=== PATIENT | male | born 1945 | race Caucasian/White ===

== ENCOUNTER 2016-09-14 12:32 | Emergency (ER) | payer OTHER ==
[~2016-09-14] VITALS: Ht 175.3 cm; Wt 119.5 kg
[~2016-09-14 12:32] MED LIST: CARDIZEM CD240 MG PO; CELEBREX200 MG PO; DIABETA,MICRON2.5 MG PO; METHOCARBAMOL750 MG PO; MICRONASE5 MG PO; MOBIC15 MG PO; SIMVASTATIN40 M1 PO; TAZTIA XT240 M1 PO; TIAZAC180 MG PO; ZESTORETIC 10-1 EAC1 PO; ZESTORETIC,P1 TABLET PO; ZOCOR40 MG PO
[2016-09-14] MEDS ORDERED: HYDROCODON-ACE1 EAC7 PO (14:08)
[2016-09-14] MEDS ORDERED: METHOCARBAMOL500 MG PO (14:08)
[2016-09-14 15:23] LABS: MCH 30.3 PG (29.0-34.0); MCHC 33.1 G/DL (30.0-36.0); MCV 91.7 FL (86-99); MEAN PLAT.VOLUME 8.8 uM^3 (9.0-12.4); PLATELET COUNT 272 K/uL (156-360); RBC DIS.WIDTH-CV 13.9 % (11.8-14.6); RBC DIS.WIDTH-SD 47.3 % (39-53); RED BLOOD COUNT 4.58 M/uL (4.00-5.50)
[2016-09-14 15:31] LABS: PROTHROMBIN TIME 10.1 (9.2-11.2)
[2016-09-14 15:43] LABS: CHLORIDE 107 mEq/L (99-109); POTASSIUM 3.9 mEq/L (3.7-5.4); SODIUM 142 mEq/L (136-147)
[2016-09-14 15:45] LABS: GLUCOSE 133 mg/dL (70-99)
[2016-09-14 15:46] LABS: ANION GAP 7 MEQ/L (2-14)
[2016-09-14 15:49] LABS: GFR ESTIMATE (CALCULATED) > 59 mL/min/; UREA NITROGEN (BUN) 24 mg/dL (9-23)
[2016-09-14] MEDS ORDERED: NAPROSYN500 MG PO (16:34)
[2016-09-14 16:56] VITALS: BP 139/87
== END 2016-09-14 16:58 | disposition home or self-care (01) ==
LOC: EME 12:32
PROVIDERS: Nurse Practitioner Family
DX: I80.02 Phlebitis and thrombophlebitis of superficial vessels of left lower extremity (principal); I83.93 Asymptomatic varicose veins of bilateral lower extremities; I10 Essential (primary) hypertension; Z87.891 Personal history of nicotine dependence; E78.5 Hyperlipidemia, unspecified; E66.9 Obesity, unspecified; Z68.38 Body mass index [BMI] 38.0-38.9, adult
CPT/HCPCS: 80048; 85027; 85610; 99281; 99284

== ENCOUNTER → 2017-01-16 | Outpatient (CLI) | payer OTHER ==
[~2017-01-16] MED LIST changes: +HYDROCODON-ACE1 EAC7 PO; +METHOCARBAMOL500 MG PO; +NAPROSYN500 MG PO
== END | disposition home or self-care (01) ==
DX: M16.12 Unilateral primary osteoarthritis, left hip (principal); R26.2 Difficulty in walking, not elsewhere classified; M25.552 Pain in left hip; M25.652 Stiffness of left hip, not elsewhere classified; M62.81 Muscle weakness (generalized); Z74.1 Need for assistance with personal care
CPT/HCPCS: 97110 GP; 97150 GO; 97161 GP; 97165 GO

== ENCOUNTER 2017-01-29 22:05 | Inpatient (IN) | payer OTHER ==
[~2017-01-29] VITALS: Ht 175.3 cm; Wt 111.5 kg
[~2017-01-29 22:05] MED LIST changes: +FLOMAX0.4 MG PO; +IRON325 M1 PO; +OXAYDO5 MG PO
[2017-01-30 07:22] LABS: POINT-OF-CARE METER ID UU14174212
[2017-01-30 07:58] VITALS: BP 125/76
[2017-01-30 11:44] LABS: HEMATOCRIT 34.9 % (38.0-50.0); MCH 30.5 PG (29.0-34.0); MCV 92.6 FL (86-99); MEAN PLAT.VOLUME 8.9 uM^3 (9.0-12.4); PLATELET COUNT 246 K/uL (156-360); RBC DIS.WIDTH-CV 13.7 % (11.8-14.6); RBC DIS.WIDTH-SD 46.7 % (39-53); RED BLOOD COUNT 3.77 M/uL (4.00-5.50); WHITE BLOOD COUNT 10.3 K/uL (4.1-10.2)
[2017-01-30 11:47] LABS: POINT-OF-CARE METER ID UU13113675
[2017-01-30 13:09] VITALS: BP 111/52
[2017-01-30 13:11] VITALS: BP 126/67
[2017-01-30 15:37] VITALS: BP 125/72
[2017-01-30 19:23] LABS: POINT-OF-CARE METER ID UU13113712
[2017-01-30 20:07] VITALS: BP 121/73
[2017-01-31 00:30] VITALS: BP 128/80
[2017-01-31 00:35] LABS: POINT-OF-CARE METER ID UU13113712
[2017-01-31 04:00] VITALS: BP 134/74
[2017-01-31 05:48] LABS: ANION GAP 8 MEQ/L (2-14); CHLORIDE 104 MEQ/L (99-109); GFR ESTIMATE (CALCULATED) > 59 mL/min/; GLUCOSE 150 mg/dL (70-99); SAMPLE HEMOLYSIS CHECK 0; SAMPLE ICTERIC CHECK 0; SAMPLE LIPEMIA CHECK 0; SODIUM 138 MEQ/L (136-147); UREA NITROGEN (BUN) 14 mg/dL (9-23)
[2017-01-31 05:58] LABS: POINT-OF-CARE METER ID UU13113712
[2017-01-31 08:00] VITALS: BP 134/87
[2017-01-31 12:00] VITALS: BP 157/95
[2017-01-31 12:32] LABS: POINT-OF-CARE METER ID UU13113712
[2017-01-31 12:57] LABS: HEMATOCRIT 37.8 % (38.0-50.0); MCV 93.1 FL (86-99)
[2017-01-31 15:53] VITALS: BP 119/70
[2017-01-31 18:52] LABS: POINT-OF-CARE METER ID UU13113712
[2017-01-31 20:04] VITALS: BP 102/68
[2017-01-31 23:46] LABS: POINT-OF-CARE METER ID UU13113712
[2017-02-01 00:09] VITALS: BP 121/62
[2017-02-01 03:37] VITALS: BP 123/64
[2017-02-01 06:09] LABS: POINT-OF-CARE METER ID UU13113712
[2017-02-01 08:05] VITALS: BP 117/56
[2017-02-01] MEDS ORDERED: ENDOCET 5-3251 EACH PO (08:52)
[2017-02-01] MEDS ORDERED: LOVENOX40 MG/0.4 SC (08:52)
[2017-02-01 11:51] LABS: POINT-OF-CARE METER ID UU13113712
[2017-02-01 12:10] VITALS: BP 121/67
[2017-02-01 15:39] VITALS: BP 109/56
[2017-02-01 18:15] LABS: POINT-OF-CARE METER ID UU13113712
[2017-02-01] MEDS ORDERED: SENNA-DOCUSATE1 EAC1 PO (23:26)
[2017-02-01] MEDS ORDERED: ZEASORB-AF70 G1 TP (23:27)
[2017-02-01] MEDS ORDERED: COMPAZINE25 M1 PR (23:28)
[2017-02-01] MEDS ORDERED: ZOFRAN4 MG/2 ML IV (23:29)
[2017-02-01] MEDS ORDERED: ZOFRAN4 MG PO (23:31)
[2017-02-01] MEDS ORDERED: REGLAN10 MG PO (23:31)
[2017-02-01] MEDS ORDERED: MILK OF MAGN PO (23:33)
[2017-02-01] MEDS ORDERED: CITRATE OF MAG296 ML PO (23:35)
[2017-02-01] MEDS ORDERED: VIVA PATCH1 EACH TP (23:35)
[2017-02-01] MEDS ORDERED: DILAUDID 00.5 MG/0.5 IV (23:36)
[2017-02-01] MEDS ORDERED: GLUCAGON HCL1 MG IM (23:37)
[2017-02-01] MEDS ORDERED: COLACE100 MG PO (23:37)
[2017-02-01] MEDS ORDERED: BENADRYL25 MG PO (23:38)
[2017-02-01] MEDS ORDERED: BENADRYL50 MG/1 ML IM (23:39)
[2017-02-01] MEDS ORDERED: DULCOLAX10 MG PR (23:40)
[2017-02-01] MEDS ORDERED: MAALOX ADVANCE355 ML PO (23:41)
[2017-02-01] MEDS ORDERED: DULCOLAX5 MG PO (23:41)
[2017-02-01] MEDS ORDERED: TYLENOL REGULA325 MG PO (23:42)
[2017-02-01] MEDS ORDERED: NOVOLOG PE100 UNITS/ SC (23:43)
== END 2017-02-01 18:05 | DRG 470 ==
LOC: ENRESERV 22:05 → 3WEST 01-30 06:38 → 2SOUTH 01-30 06:38 → 3WEST 01-30 12:42 → 2SOUTH 01-30 14:12 → 3WEST 02-01 12:04 → ENRESERV 02-01 12:05 → CANRESERV 02-01 13:11 → ENRESERV 02-01 13:11 → 3WEST 02-01 18:05
PROVIDERS: Orthopaedic Surgery
PROC: 0SRB02A Replacement of Left Hip Joint with Metal on Polyethylene Synthetic Substitute, Uncemented, Open Approach (ICD-10-PCS; principal; 2017-01-30)
DX: M16.12 Unilateral primary osteoarthritis, left hip (principal); E11.9 Type 2 diabetes mellitus without complications; E78.00 Pure hypercholesterolemia, unspecified; I10 Essential (primary) hypertension; N40.0 Benign prostatic hyperplasia without lower urinary tract symptoms; E66.9 Obesity, unspecified; M48.06 Spinal stenosis, lumbar region; I83.92 Asymptomatic varicose veins of left lower extremity; Z68.39 Body mass index [BMI] 39.0-39.9, adult; Z79.84 Long term (current) use of oral hypoglycemic drugs; Z23 Encounter for immunization; Z87.891 Personal history of nicotine dependence; Z80.6 Family history of leukemia; Z82.5 Family history of asthma and other chronic lower respiratory diseases
CPT/HCPCS: 73501; 80048; 82948; 85014; 85018; 85027; 90686; J0690; J1170; J1650; J1815; J2250; J2405; J7050

== ENCOUNTER 2017-02-01 16:04 | Inpatient (IN) | payer OTHER ==
[~2017-02-01] VITALS: Ht 175.3 cm; Wt 102.9 kg
[~2017-02-01 16:04] MED LIST changes: +ENDOCET 5-3251 EACH PO; +LOVENOX40 MG/0.4 SC
[2017-02-01 18:14] VITALS: BP 138/62
[2017-02-01 21:08] LABS: POINT-OF-CARE METER ID UU14174215
[2017-02-01] MEDS ORDERED: SENNA-DOCUSATE1 EAC1 PO (23:26)
[2017-02-01] MEDS ORDERED: ZEASORB-AF70 G1 TP (23:27)
[2017-02-01] MEDS ORDERED: COMPAZINE25 M1 PR (23:28)
[2017-02-01] MEDS ORDERED: ZOFRAN4 MG/2 ML IV (23:29)
[2017-02-01] MEDS ORDERED: ZOFRAN4 MG PO (23:31)
[2017-02-01] MEDS ORDERED: REGLAN10 MG PO (23:31)
[2017-02-01] MEDS ORDERED: MILK OF MAGN PO (23:33)
[2017-02-01] MEDS ORDERED: CITRATE OF MAG296 ML PO (23:35)
[2017-02-01] MEDS ORDERED: VIVA PATCH1 EACH TP (23:35)
[2017-02-01] MEDS ORDERED: DILAUDID 00.5 MG/0.5 IV (23:36)
[2017-02-01] MEDS ORDERED: GLUCAGON HCL1 MG IM (23:37)
[2017-02-01] MEDS ORDERED: COLACE100 MG PO (23:37)
[2017-02-01] MEDS ORDERED: BENADRYL25 MG PO (23:38)
[2017-02-01] MEDS ORDERED: BENADRYL50 MG/1 ML IM (23:39)
[2017-02-01] MEDS ORDERED: DULCOLAX10 MG PR (23:40)
[2017-02-01] MEDS ORDERED: MAALOX ADVANCE355 ML PO (23:41)
[2017-02-01] MEDS ORDERED: DULCOLAX5 MG PO (23:41)
[2017-02-01] MEDS ORDERED: TYLENOL REGULA325 MG PO (23:42)
[2017-02-01] MEDS ORDERED: NOVOLOG PE100 UNITS/ SC (23:43)
[2017-02-02 01:34] VITALS: BP 114/69
[2017-02-02 04:42] VITALS: BP 137/74
[2017-02-02 05:27] LABS: MCH 31.1 PG (29.0-34.0); MCHC 33.3 G/DL (30.0-36.0); MCV 93.2 FL (86-99); MEAN PLAT.VOLUME 9.1 uM^3 (9.0-12.4); PLATELET COUNT 249 K/uL (156-360); RBC DIS.WIDTH-CV 14.2 % (11.8-14.6); RBC DIS.WIDTH-SD 48.5 % (39-53); RED BLOOD COUNT 3.54 M/uL (4.00-5.50); WHITE BLOOD COUNT 12.6 K/uL (4.1-10.2)
[2017-02-02 05:55] LABS: ALKALINE PHOSPHATASE 64 IU/L (3-129); ANION GAP 7 MEQ/L (2-14); CHLORIDE 101 MEQ/L (99-109); GFR ESTIMATE (CALCULATED) > 59 mL/min/; POTASSIUM 3.9 MEQ/L (3.7-5.4); SAMPLE HEMOLYSIS CHECK 0; SAMPLE ICTERIC CHECK 0; SAMPLE LIPEMIA CHECK 0; SODIUM 137 MEQ/L (136-147); TOTAL BILIRUBIN 0.6 MG/DL (0.0-1.0)
[2017-02-02 05:57] LABS: GLUCOSE 106 mg/dL (70-99); UREA NITROGEN (BUN) 26 mg/dL (9-23)
[2017-02-02 07:20] LABS: POINT-OF-CARE METER ID UU14174215; POINT-OF-CARE USER ID ENVGAF
[2017-02-02 11:47] LABS: POINT-OF-CARE METER ID UU14174215
[2017-02-02 16:00] VITALS: BP 120/66
[2017-02-02 17:01] LABS: POINT-OF-CARE METER ID UU14174215
[2017-02-02 21:00] LABS: POINT-OF-CARE METER ID UU13113720
[2017-02-03 05:29] VITALS: BP 145/71
[2017-02-03 07:58] LABS: POINT-OF-CARE METER ID UU14174215
[2017-02-03 11:34] LABS: POINT-OF-CARE METER ID UU14174215
[2017-02-03 15:14] VITALS: BP 124/83
[2017-02-03 16:23] LABS: POINT-OF-CARE METER ID UU14174215
[2017-02-03 21:18] LABS: POINT-OF-CARE METER ID UU13113720
[2017-02-04 05:51] VITALS: BP 127/55
[2017-02-04 07:10] LABS: POINT-OF-CARE METER ID UU13113720
[2017-02-04 12:02] LABS: POINT-OF-CARE METER ID UU14174215
[2017-02-04 15:46] VITALS: BP 132/64
[2017-02-04 16:38] LABS: POINT-OF-CARE METER ID UU14174215
[2017-02-04 21:54] LABS: POINT-OF-CARE METER ID UU13113720
[2017-02-05 05:34] VITALS: BP 139/79
[2017-02-05 07:40] LABS: POINT-OF-CARE METER ID UU13113720
[2017-02-05 12:08] LABS: POINT-OF-CARE METER ID UU13113720
[2017-02-05 15:33] VITALS: BP 114/67
[2017-02-05 16:41] LABS: POINT-OF-CARE METER ID UU13113720
[2017-02-05 19:03] LABS: HEMATOCRIT 33.4 % (38.0-50.0); MCH 31.7 PG (29.0-34.0); MCHC 33.8 G/DL (30.0-36.0); MCV 93.8 FL (86-99); MEAN PLAT.VOLUME 8.5 uM^3 (9.0-12.4); PLATELET COUNT 333 K/uL (156-360); RBC DIS.WIDTH-CV 14.2 % (11.8-14.6); RBC DIS.WIDTH-SD 48.7 % (39-53); RED BLOOD COUNT 3.56 M/uL (4.00-5.50); WHITE BLOOD COUNT 9.6 K/uL (4.1-10.2)
[2017-02-05 19:11] LABS: ANION GAP 9 MEQ/L (2-14); CHLORIDE 103 MEQ/L (99-109); GFR ESTIMATE (CALCULATED) > 59 mL/min/; GLUCOSE 137 mg/dL (70-99); POTASSIUM 3.3 MEQ/L (3.7-5.4); SAMPLE HEMOLYSIS CHECK 0; SAMPLE ICTERIC CHECK 0; SAMPLE LIPEMIA CHECK 0; SODIUM 139 MEQ/L (136-147); UREA NITROGEN (BUN) 28 mg/dL (9-23)
[2017-02-05 21:44] LABS: POINT-OF-CARE METER ID UU13113720
[2017-02-06 05:26] VITALS: BP 136/68
[2017-02-06 07:14] LABS: ANION GAP 8 MEQ/L (2-14); CHLORIDE 104 MEQ/L (99-109); GFR ESTIMATE (CALCULATED) > 59 mL/min/; GLUCOSE 121 mg/dL (70-99); POTASSIUM 4.2 MEQ/L (3.7-5.4); SAMPLE HEMOLYSIS CHECK 0; SAMPLE ICTERIC CHECK 0; SAMPLE LIPEMIA CHECK 0; SODIUM 140 MEQ/L (136-147); UREA NITROGEN (BUN) 22 mg/dL (9-23)
== END 2017-02-06 14:52 | disposition home health service (06) | DRG 560 ==
LOC: 3WEST 16:04
PROVIDERS: Physical Medicine & Rehabilitation Pain Medicine
DX: Z47.1 Aftercare following joint replacement surgery (principal); R26.2 Difficulty in walking, not elsewhere classified; Z96.642 Presence of left artificial hip joint; D62 Acute posthemorrhagic anemia; D72.829 Elevated white blood cell count, unspecified; M79.605 Pain in left leg; M25.512 Pain in left shoulder; M25.511 Pain in right shoulder; R11.0 Nausea; E11.9 Type 2 diabetes mellitus without complications; E78.00 Pure hypercholesterolemia, unspecified; I10 Essential (primary) hypertension; N40.0 Benign prostatic hyperplasia without lower urinary tract symptoms; Z80.6 Family history of leukemia; Z87.891 Personal history of nicotine dependence
CPT/HCPCS: 80048; 80053; 82948; 85027; 97110 GO; 97530 GP; J1650

== ENCOUNTER 2017-03-24 21:04 | Inpatient (IN) | payer OTHER ==
[~2017-03-24] VITALS: Ht 175.3 cm; Wt 116.0 kg
[~2017-03-24 21:04] MED LIST changes: +BENADRYL25 MG PO; +BENADRYL50 MG/1 ML IM; +CITRATE OF MAG296 ML PO; +COLACE100 MG PO; +COMPAZINE25 M1 PR; +DILAUDID 00.5 MG/0.5 IV; +DULCOLAX10 MG PR; +DULCOLAX5 MG PO; +GLUCAGON HCL1 MG IM; +MAALOX ADVANCE355 ML PO; +MILK OF MAGN PO; +NOVOLOG PE100 UNITS/ SC; +REGLAN10 MG PO; +SENNA-DOCUSATE1 EAC1 PO; +TYLENOL REGULA325 MG PO; +VIVA PATCH1 EACH TP; +ZEASORB-AF70 G1 TP; +ZOFRAN4 MG PO; +ZOFRAN4 MG/2 ML IV
[2017-03-24 21:27] LABS: HEMATOCRIT 37.2 % (38.0-50.0); MCH 31.1 PG (29.0-34.0); MCHC 32.8 G/DL (30.0-36.0); MCV 94.9 FL (86-99); MEAN PLAT.VOLUME 8.7 uM^3 (9.0-12.4); PLATELET COUNT 258 K/uL (156-360); RBC DIS.WIDTH-CV 14.2 % (11.8-14.6); RBC DIS.WIDTH-SD 49.1 % (39-53); RED BLOOD COUNT 3.92 M/uL (4.00-5.50); WHITE BLOOD COUNT 9.1 K/uL (4.1-10.2)
[2017-03-24 21:37] LABS: CHLORIDE 109 mEq/L (99-109); POTASSIUM 3.6 mEq/L (3.7-5.4); SODIUM 142 mEq/L (136-147)
[2017-03-24 21:39] LABS: GLUCOSE 161 mg/dL (70-99)
[2017-03-24 21:40] LABS: ANION GAP 7 MEQ/L (2-14)
[2017-03-24 21:43] LABS: GFR ESTIMATE (CALCULATED) > 59 mL/min/
[2017-03-24 21:44] LABS: UREA NITROGEN (BUN) 25 mg/dL (9-23)
[2017-03-24 21:49] LABS: TROP-I INTERPRETATION NEGATIVE; TROPONIN-I < 0.01 ng/mL (0.0-0.30)
[2017-03-25] MEDS ORDERED: OXYCODONE HCL5 MG PO (01:38)
[2017-03-25 02:17] VITALS: BP 179/84
[2017-03-25 03:12] LABS: PROTHROMBIN TIME 11.2 SEC (10.2-12.9)
[2017-03-25 03:15] LABS: PTT 30.6 SEC (25-37)
[2017-03-25 06:10] LABS: HEMATOCRIT 35.5 % (38.0-50.0); MCH 30.9 PG (29.0-34.0); MCHC 32.7 G/DL (30.0-36.0); MCV 94.4 FL (86-99); MEAN PLAT.VOLUME 9.1 uM^3 (9.0-12.4); PLATELET COUNT 260 K/uL (156-360); RBC DIS.WIDTH-SD 48.3 % (39-53); RED BLOOD COUNT 3.76 M/uL (4.00-5.50); WHITE BLOOD COUNT 10.1 K/uL (4.1-10.2)
[2017-03-25 06:34] LABS: TROP-I INTERPRETATION NEGATIVE; TROPONIN-I 0.02 ng/mL (0.0-0.30)
[2017-03-25 07:20] LABS: ALKALINE PHOSPHATASE 79 IU/L (3-129); ANION GAP 10 MEQ/L (2-14); CHLORIDE 107 MEQ/L (99-109); GFR ESTIMATE (CALCULATED) > 59 mL/min/; GLUCOSE 152 mg/dL (70-99); POTASSIUM 3.9 MEQ/L (3.7-5.4); SAMPLE HEMOLYSIS CHECK 0; SAMPLE ICTERIC CHECK 0; SAMPLE LIPEMIA CHECK 0; SODIUM 143 MEQ/L (136-147); TOTAL BILIRUBIN 0.4 MG/DL (0.0-1.0); UREA NITROGEN (BUN) 20 mg/dL (9-23)
[2017-03-25 08:30] VITALS: BP 146/92
[2017-03-25 08:59] LABS: ADD MIUA? NO; BILIRUBIN NEGATIVE; BLOOD NEGATIVE; COLOR YELLOW ((YELLOW)); GLUCOSE (STRIP) NEGATIVE; KETONES NEGATIVE; LEUKOCYTES NEGATIVE; NITRITE NEGATIVE; PROTEIN (STRIP) NEGATIVE; SPECIFIC GRAVITY 1.026 (1.000-1.030); UROBILINOGEN 0.2 MG/DL (0.2-1.0)
[2017-03-25 12:30] VITALS: BP 135/81
[2017-03-25 15:04] LABS: TROP-I INTERPRETATION NEGATIVE; TROPONIN-I 0.02 ng/mL (0.0-0.30)
[2017-03-25 19:42] VITALS: BP 132/80
[2017-03-25 21:06] LABS: POINT-OF-CARE METER ID UU14174216
[2017-03-26] VITALS (7 sets, daily range): BP systolic 126–173; BP diastolic 75–91
[2017-03-26 05:49] LABS: HEMATOCRIT 36.2 % (38.0-50.0); MCHC 32.6 G/DL (30.0-36.0); MEAN PLAT.VOLUME 9.1 uM^3 (9.0-12.4); PLATELET COUNT 258 K/uL (156-360); RBC DIS.WIDTH-CV 14.2 % (11.8-14.6); RBC DIS.WIDTH-SD 49.4 % (39-53); RED BLOOD COUNT 3.81 M/uL (4.00-5.50); WHITE BLOOD COUNT 7.5 K/uL (4.1-10.2)
[2017-03-26 06:24] LABS: TROP-I INTERPRETATION NEGATIVE; TROPONIN-I < 0.01 ng/mL (0.0-0.30)
[2017-03-26 10:54] LABS: POINT-OF-CARE METER ID UU13113781
[2017-03-27 04:32] VITALS: BP 154/78
[2017-03-27 07:24] VITALS: BP 165/89
[2017-03-27 12:01] VITALS: BP 171/82
[2017-03-27 17:22] VITALS: BP 171/90
[2017-03-27 19:15] VITALS: BP 154/99
[2017-03-28 00:10] VITALS: BP 142/87
[2017-03-28 04:19] VITALS: BP 142/84
[2017-03-28 05:35] LABS: MCH 30.6 PG (29.0-34.0); MCHC 32.6 G/DL (30.0-36.0); MCV 93.8 FL (86-99); MEAN PLAT.VOLUME 9.1 uM^3 (9.0-12.4); PLATELET COUNT 298 K/uL (156-360); RBC DIS.WIDTH-SD 47.5 % (39-53); RED BLOOD COUNT 4.05 M/uL (4.00-5.50); WHITE BLOOD COUNT 8.3 K/uL (4.1-10.2)
[2017-03-28 09:19] VITALS: BP 139/777
[2017-03-28 11:28] VITALS: BP 129/81
[2017-03-28] MEDS ORDERED: ASPIR-LOW81 MG PO (14:24)
== END 2017-03-28 14:52 | disposition home or self-care (01) | DRG 69 ==
LOC: EME 21:04 → EDOF 03-25 00:29 → 4EAST 03-25 00:29 → ENRESERV 03-25 00:31 → 4EAST 03-25 02:05
PROVIDERS: Internal Medicine; Internal Medicine Cardiovascular Disease
DX: G45.9 Transient cerebral ischemic attack, unspecified (principal); S22.43XA Multiple fractures of ribs, bilateral, initial encounter for closed fracture; E11.9 Type 2 diabetes mellitus without complications; I48.91 Unspecified atrial fibrillation; E78.5 Hyperlipidemia, unspecified; I10 Essential (primary) hypertension; W18.30XA Fall on same level, unspecified, initial encounter; N40.0 Benign prostatic hyperplasia without lower urinary tract symptoms; D64.9 Anemia, unspecified; E87.6 Hypokalemia; I49.1 Atrial premature depolarization; M19.90 Unspecified osteoarthritis, unspecified site; M51.86 Other intervertebral disc disorders, lumbar region; E66.9 Obesity, unspecified; Z96.642 Presence of left artificial hip joint; Z79.82 Long term (current) use of aspirin; Z68.38 Body mass index [BMI] 38.0-38.9, adult; Z79.4 Long term (current) use of insulin; Z87.891 Personal history of nicotine dependence
CPT/HCPCS: 70450; 71020; 71275; 80048; 80053; 81003; 82948; 84484; 85027; 85610; 85730; 93005; 93306; 93970; 95819; 99281; 99285; J7030